=== PATIENT | male | born 1975 | race Caucasian/White ===

== ENCOUNTER 2018-02-24 06:16 | Emergency (ER) | payer MEDICAID ==
[~2018-02-24] VITALS: Ht 165.1 cm; Wt 90.0 kg
[~2018-02-24 06:16] MED LIST: NAPR-56 PO
[2018-02-24 06:20] VITALS: BP 111/65
[2018-02-24] MEDS ORDERED: IBUP-1984 PO (06:32)
[2018-02-24] MEDS ORDERED: amoxicillin 250mg capsule PO ONE (06:50)
[2018-02-24] MEDS ORDERED: LIDOcaine Viscous 15ml cup MM ONE (06:50)
[2018-02-24] MEDS ORDERED: ondansetron 4mg rapidly disintigrating tab PO ONE (06:55)
[2018-02-24] MEDS ORDERED: HYDROcodone/acetaminophen 5mg/325mg tablet PO ONE (06:55)
[2018-02-24] MEDS ORDERED: AMOX500C2 PO (07:13)
== END 2018-02-24 07:31 | disposition home or self-care (01) ==
LOC: ER 06:16
DX: K04.7 Periapical abscess without sinus (principal); F12.90 Cannabis use, unspecified, uncomplicated; Z56.0 Unemployment, unspecified
CPT/HCPCS: 41800; 99284

== ENCOUNTER 2018-03-22 09:00 | Emergency (ER) | payer MEDICAID ==
[~2018-03-22 09:00] MED LIST changes: +AMOX500C2 PO; +IBUP-1984 PO; -NAPR-56 PO
[2018-03-22] MEDS ORDERED: AMOX875T10 PO (09:43)
[2018-03-22 09:54] VITALS: BP 160/98
[2018-03-25] MEDS ORDERED: CLIN150C2 PO (09:34)
[2018-03-25] MEDS ORDERED: HYDR-565 PO (09:34)
[2018-03-25] MEDS ORDERED: ONDA4TAB9 PO (09:34)
== END 2018-03-22 09:55 | disposition home or self-care (01) ==
LOC: ER 09:00
DX: K04.7 Periapical abscess without sinus (principal); F12.90 Cannabis use, unspecified, uncomplicated; F17.200 Nicotine dependence, unspecified, uncomplicated; Z79.899 Other long term (current) drug therapy; Z56.0 Unemployment, unspecified
CPT/HCPCS: 99283

== ENCOUNTER 2022-06-28 07:58 | Emergency (ER) | payer MEDICAID ==
[~2022-06-28] VITALS: Ht 165.1 cm; Wt 81.8 kg
[~2022-06-28 07:58] MED LIST changes: -AMOX500C2 PO; +AMOX875T10 PO
--- NOTE | 2022-06-28 11:20 | NUR ---
ED charge nurse Nandini and GEMMA Jordan made aware of blood pressure of 204/115.
[2022-06-28] MEDS ORDERED: morphine 10mg/ml inj. IM ONE (12:15)
[2022-06-28] MEDS ORDERED: LORazepam 1 MG tablet PO ONE (12:15)
[2022-06-28 13:33] VITALS: BP 189/110
[2022-06-28] MEDS ORDERED: LIDOcaine 1% W/epiNEPHrine 1:200,000 10ml vial IJ ONE (14:00)
[2022-06-28] MEDS ORDERED: LIDOCAINE 1%/EPI 1:100,000 inj. 10 ML multi-dose vial IJ ONE (14:05)
[2022-06-28] MEDS ORDERED: sulfamethoxazole/trimethoprim DS (800/160mg) tablet PO ONE (14:20)
[2022-06-28] MEDS ORDERED: cephalexin 250mg capsule PO ONE (14:20)
[2022-06-28] MEDS ORDERED: AMLO5TAB4 PO (14:27)
[2022-06-28] MEDS ORDERED: CEPH250T PO (14:27)
[2022-06-28] MEDS ORDERED: SULF1TAB49 PO (14:27)
[2022-06-28] MEDS ORDERED: IBUP-1984 PO (14:27)
== END 2022-06-28 14:36 | disposition home or self-care (01) ==
LOC: ER 07:58
DX: K13.0 Diseases of lips (principal); I10 Essential (primary) hypertension; F17.200 Nicotine dependence, unspecified, uncomplicated; F12.90 Cannabis use, unspecified, uncomplicated; Z72.89 Other problems related to lifestyle; Z90.89 Acquired absence of other organs; Z56.0 Unemployment, unspecified; Z79.2 Long term (current) use of antibiotics; Z79.899 Other long term (current) drug therapy
CPT/HCPCS: 10060; 96372; 99284; J2274; A6449

== ENCOUNTER 2025-07-26 17:30 | Emergency (ER) | payer MEDICAID ==
[~2025-07-26] VITALS: Ht 165.1 cm; Wt 56.8 kg
[~2025-07-26 17:30] MED LIST changes: +AMLO5TAB4 PO
[2025-07-26 17:50] VITALS: BP 97/65; PULSE 52; RESP 16; TEMP 98.1; O2SAT 94
--- NOTE | 2025-07-26 18:20 | Physician Documentation ---
HPI ~ General Chief Complaint: Tooth Problem Stated Complaint: TOOTH PAIN Primary Medical Doctor: no pmd History of Present Illness HPI Comment The patient is a very pleasant 30-year-old male that presents to the emergency department for evaluation of left lower jaw tooth pain times several days. Patient reports that he has been unable to get into see the dentist. Patient has significant swelling in the soft tissue of the left cheek with a associated left-sided lymphadenopathy. She reports that you may or may not have been febrile he is unsure. Patient denies nausea vomiting diarrhea at this time. Patient has mildly low blood pressure here in the triage room but does not wish to do any diagnostics to investigate this further. Patient reports he has a primary care provider that he will be following up with this week. Patient reports that he only wants antibiotics for his dental infection. Medication Reconciliation Allergies: Coded Allergies: No Known Allergies (Unverified , 06/28/22) Scheduled Amlodipine Besylate (Norvasc), 1 TAB PO DAILY Amoxicillin Trihydrate (Amoxicillin), 1 TAB PO BID Ibuprofen* (Motrin*), 800 MG PO Q8H, (Reported) Past Medical History Past Medical History: No Pertinent History Past Surgical History: appendectomy Alcohol Use: Occasionally Drug Use: marijuana Lives with: Family Lives In: Home Occupation: unemployed Review of Systems ROS As stated above in the HPI, otherwise all systems are reviewed and negative. Physical Exam Vital Signs: Temperature: 98.1, Source: Oral, Heart Rate: 52, Respiratory Rate: 16, BP: 97/65, Pulse Oximetry: 94, Weight: 56.820 Oxygen Flow Rate: 0 Physical Exam VITALS: Reviewed and as above. GENERAL: Alert, no apparent distress. HEENT: Normocephalic, atraumatic, PERRL, EOMI, dry mucosa, no erythema, edema noted to the left cheek, edema noted to the left lower gumline adjacent to the tooth that appears to be infected at this time, mild left-sided lymphadenopathy noted during examination. SKIN: Warm and dry, no rash NEURO: Oriented x4, No motor or sensory deficit PSYCH: Normal mood and affect, no agitation Progress Results/Orders Results/Orders Vital Signs 07/26/25 17:50 Temp 98.1 Pulse 52 Resp 16 B/P (MAP) 97/65 Pulse Ox 94 O2 Flow Rate 0 Medical Decision Making Additional information obtaine: other Findings Chief Complaint: Left lower jaw tooth pain with facial swelling History of Present Illness: 30-year-old male presents with several days of left lower jaw tooth pain. Unable to obtain dental care. Reports significant left cheek soft tissue swelling with associated left-sided cervical lymphadenopathy. Uncertain if febrile at home. Denies nausea, vomiting, or diarrhea. Noted to have mildly low blood pressure in triage but declined further diagnostic workup. Has established primary care provider with planned follow-up this week. Patient specifically requesting antibiotics only. Medical Decision Making: This patient presents with findings consistent with a localized odontogenic in fection with regional lymph node involvement. The presence of significant facial swelling and ipsilateral lymphadenopathy suggests progression beyond simple localized abscess, though the patient denies systemic symptoms of fever or malaise and appears clinically stable. [1] According to [employer] guidelines, antibiotics are indicated for immunocompetent adults with localized acute apical abscess, particularly when definitive dental treatment cannot be immediately provided. [1] The presence of lymph node involvement raises concern for potential progression to acute apical abscess with systemic involvement, which is characterized by fascial space or lymph node involvement, fever, and/or malaise. [1] Antibiotic selection: Amoxicillin-clavulanate (Augmentin) is an appropriate choice for this patient. While amoxicillin alone is considered first-line therapy, amoxicillin-clavulanate provides broader coverage against gram-negative anaerobes and is specifically recommended for patients who fail to respond to first-line treatment. [1] Given the presence of significant swelling and lymphadenopathy, the broader spectrum coverage is reasonable. [2-3] Risk assessment: Several concerning features warrant close monitoring: Mildly low blood pressure (though patient declined further evaluation) Uncertain fever history Significant facial swelling with lymphadenopathy Patient declined diagnostic workup The patient does not currently meet criteria for hospital admission, as he lacks clear evidence of deep space infection, airway compromise, trismus, or inability to tolerate oral intake. [1][4] However, he requires close outpatient monitoring given the lymph node involvement. Disposition: Discharge home with antibiotics, strict return precautions, and mandatory follow-up. Treatment Plan: Amoxicillin-clavulanate 875/125 mg orally twice daily for 7 days First dose administered in emergency department NSAIDs and acetaminophen for pain management as needed Follow-up with primary care provider within 3 days for reevaluation [1] Urgent dental referral for definitive treatment (extraction, root canal, or incision and drainage as indicated) Return Precautions: Patient instructed to return immediately or call 911 for: Worsening or spreading facial/neck swelling Difficulty breathing or swallowing Difficulty opening mouth (trismus) Fever >101F Swelling extending to lower border of mandible, orbit, or neck Inability to tolerate oral intake Worsening pain despite antibiotics Any signs of systemic illness including malaise, confusion, or severe weakness Development of ?3 loose bowel movements per day (concern for C. difficile) [1] Patient verbalized understanding of return precautions and the importance of urgent dental follow-up. Patient agrees to follow up with primary care provider this week and will seek urgent dental care. Patient understands that antibiotics alone are not definitive treatment and that dental intervention is required. [1][5] Antibiotic stewardship note: Patients should discontinue antibiotics 24 hours after symptoms resolve, irrespective of completing the full course, per ADA guidelines. [1] Differential Dx:Considerations: Include: Alveolar fracture, Alveolar osteitis, ANUG, Facial Cellulitis, Periapical abscess, Peridontal abscess, Post-extraction bleeding, Pulpitis, Tooth avulsion, Tooth eruption, Tooth Fracture, Trigeminal neuralgia, Tooth subluxation, Other Departure Disposition: 01 HOME / SELF CARE / HOMELESS Impression: Primary Impression: Toothache Additional Impressions: Abscess Dental abscess Condition: Stable Discharge Instructions: Dental Caries, Adult, Dental Abscess Additional Instructions: DISCHARGE INSTRUCTIONS Dental Infection Your Diagnosis: You have a tooth infection (dental abscess) in your left lower jaw. Your Medications: Augmentin (Amoxicillin-Clavulanate) 875 mg/125 mg Take 1 tablet by mouth twice daily (every 12 hours) Take with food to prevent stomach upset [1] Continue for 7 days or until 24 hours after your symptoms completely go away [2] You received your first dose in the emergency department today For Pain: Take ibuprofen 400-600 mg AND acetaminophen (Tylenol) 1000 mg together every 6-8 hours as needed for pain [2-3] Do not exceed maximum daily doses Important Follow-Up: You MUST see a dentist - Antibiotics alone will NOT cure your infection. You need dental treatment (root canal or tooth extraction) to fix the problem. [2-3] See your primary care doctor within 3 days for a check-up. [2] RETURN TO THE EMERGENCY DEPARTMENT IMMEDIATELY OR CALL 911 IF YOU DEVELOP: Difficulty breathing or swallowing Difficulty opening your mouth Swelling that gets worse or spreads to your neck, eye area, or under your jaw Fever over 101F (38.3C) Worsening pain despite taking antibiotics Feeling very weak, confused, or severely ill Severe diarrhea (3 or more loose stools per day) [2][4] Other Important Information: Diarrhea is common with this antibiotic and usually goes away when you finish the medication [1][5] If you develop a skin rash, stop the medication immediately and call your doctor [1][5] Contact your doctor if diarrhea is severe or lasts more than 2-3 days [1][5] Referrals: NO PRIMARY CARE PROVIDER (PCP) Prescriptions Amox Tr/Potassium Clavulanate (Augmentin 875-125 Tablet) 1 Each Tablet 1 TAB PO Q12H for 10 Days, #20 TAB Prov: CASSANDRA HORTA 07/26/25 Education Educated: Patient Educated regarding: diagnosis, treatment, need for follow up Signature Scribe Signature: A Attestation: Scribed for Emergency,Department by WENDY Rubi . 07/26/25 18:22 CASSANDRA HORTA Jul 26, 2025 18:20
[2025-07-26] MEDS ORDERED: AMOX-117 PO (18:21)
[2025-07-26] MEDS: amox tr/potassium clavulanate 875/125mg TAB PO ONE (18:49)
== END 2025-07-26 18:49 | disposition home or self-care (01) ==
LOC: ER 17:30
DX: K04.7 Periapical abscess without sinus (principal); F12.90 Cannabis use, unspecified, uncomplicated; Z90.49 Acquired absence of other specified parts of digestive tract; Z72.89 Other problems related to lifestyle
CPT/HCPCS: 99283